=== PATIENT | female | born 1990 | race Caucasian/White ===

== ENCOUNTER 2021-01-18 13:15 | Observation (INO) | payer OTHER ==
[~2021-01-18] VITALS: Ht 154.9 cm; Wt 85.3 kg
== END 2021-01-18 17:30 | disposition home or self-care (01) ==
LOC: 8 EST LDRP 13:15
PROVIDERS: ADMIT Obstetrics & Gynecology; ATTEND Obstetrics & Gynecology
DX: O42.913 Preterm premature rupture of membranes, unspecified as to length of time between rupture and onset of labor, third trimester (principal); Z3A.31 31 weeks gestation of pregnancy
CPT/HCPCS: 76805; 76810; 76815; 76818; G0378; 99281